=== PATIENT | female | born 2000 | race Caucasian/White ===

== ENCOUNTER 2023-06-20 11:40 | Emergency (ER) | payer BC, MEDICAID, OTHER ==
[~2023-06-20] VITALS: Ht 170.2 cm; Wt 113.6 kg
[2023-06-20 11:41] VITALS: BP 157/91; PULSE 100; RESP 16; TEMP 97.6; O2SAT 97
[2023-06-20] MEDS ORDERED: HYDROcodone-ACET 10/325MG TAB PO ONE (15:15)
== END 2023-06-20 16:37 | disposition home or self-care (01) ==
LOC: ER 11:40 → EDBD 11:40 → ER 16:30
DX: M51.37 Other intervertebral disc degeneration, lumbosacral region (principal)
CPT/HCPCS: 72131

== ENCOUNTER 2024-10-17 19:13 | Emergency (ER) | payer BC, MEDICAID, OTHER ==
[~2024-10-17] VITALS: Ht 170.2 cm; Wt 113.6 kg
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
[2024-10-17 19:40] VITALS: BP 144/109; PULSE 118; RESP 22; O2SAT 99
[2024-10-17] MEDS ORDERED: IBUPROFEN 800 MG TAB PO ONE (19:45)
== END 2024-10-17 21:35 | disposition left against medical advice (07) ==
LOC: ER 19:16
DX: H57.13 Ocular pain, bilateral (principal); H92.03 Otalgia, bilateral; Z88.8 Allergy status to other drugs, medicaments and biological substances